=== PATIENT | female | born 1980 | race Caucasian/White ===

== ENCOUNTER → 2020-01-01 | Outpatient (CLI) | payer BC ==
--- NOTE | 2020-01-07 16:57 | RAD ---
DATE: 01/01/2020 1:40 PM EXAM: DIGITAL SCREEN BILAT W/CAD HISTORY: Screening COMPARISON: None. This is a baseline. Bilateral full field craniocaudal and mediolateral oblique images were obtained using digital technique. This study was interpreted with the benefit of Computerized Aided Detection (CAD). FINDINGS: Breast Density: HETERO The breast parenchyma Is heterogeneously dense, which could reduce sensitivity of mammography. Breast parenchyma level C There are bilateral asymmetries only partially imaged on the MLO view posteriorly on the dorsal aspect of the posterior nipple line in the right breast, and inferior to the nipple in the left breast. The inframammary folds are incompletely visualized and would benefit from additional views. IMPRESSION: Bilateral breast asymmetry, findings for which additional imaging is advised. BI-RADS CATEGORY: 0 INCOMPLETE: NEEDS ADDITIONAL IMAGING EVALUATION AND/OR PRIOR MAMMOGRAMS FOR COMPARISON. RECOMMENDED FOLLOW-UP: ADD ADDITIONAL IMAGING The patient will be contacted to return for additional imaging and a supplemental report will follow. PQRS compliance statement: Patient information was entered into a reminder system with a target due date for the next mammogram. Mammography is a sensitive method for finding small breast cancers, but it does not detect them all and is not a substitute for careful clinical examination. A negative mammogram does not negate a clinically suspicious finding and should not result in delay in biopsying a clinically suspicious abnormality. "Our facility is accredited by the [employer] Mammography Program."
== END ==
LOC: MAMMO 15:32
PROVIDERS: ATTEND Nurse Practitioner Women's Health
DX: Z12.31 Encounter for screening mammogram for malignant neoplasm of breast (principal); N64.89 Other specified disorders of breast
CPT/HCPCS: 77067

== ENCOUNTER → 2020-01-18 | Outpatient (CLI) | payer BC ==
--- NOTE | 2020-01-18 19:03 | RAD ---
Examination: Bilateral digital diagnostic mammogram. INDICATION: Abnormal bilateral mammogram. COMPARISON: Bilateral mammogram of 01/01/2020 TECHNIQUE: Bilateral MLO views and spot compression views in the MLO projections were obtained. FINDINGS: Heterogeneously dense breasts. Bilateral MLO views were obtained with greater emphasis on inclusion of posterior breast tissue. Spot compression views were also obtained of the asymmetry is identified in the posterior breasts. These changes configuration in a pattern compatible benign overlap of fibroglandular tissue. The overall configuration is consistent with benign post reduction mammoplasty changes. IMPRESSION: Benign findings on bilateral digital diagnostic mammogram. No evidence of malignancy Recommend return to routine screening BI-RADS Category 2 Benign findings Patient entered into a reminder system with targeted due date for next mammogram Electronically signed by: Selina Feliciano MD (01/18/2020 7:00 PM) [id number]
== END ==
LOC: MAMMO 15:03
PROVIDERS: ATTEND Nurse Practitioner Women's Health
DX: R92.2 Inconclusive mammogram (principal)
CPT/HCPCS: 77066